=== PATIENT | male | born 1990 | race Caucasian/White ===

== ENCOUNTER 2024-04-30 05:52 | Emergency (ER) | payer MEDICAID, SELFPAY ==
[2024-04-30 05:53] VITALS: BMI 26.6
[2024-04-30 06:00] VITALS: BP 145/91; PULSE 90; RESP 20; TEMP 36.4; O2SAT 100
--- NOTE | 2024-04-30 06:04 | EKG_ITS ---
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
--- NOTE | 2024-04-30 06:31 | XR_ITS ---
Examination: PA lateral chest 2 views Technique: Upright PA lateral chest 2 views Exam date and time: April 30, 2024 0638 hrs. Comparison October 07, 2022 Indications: Chest pain today. Findings: Normal heart size Lungs are clear. The osseous structures are intact Impression: No active disease
--- NOTE | 2024-04-30 06:32 | PD.EDRME ---
Rapid Medical Screening Exam RME Arrival date/time: 04/30/24 0600 This is a 33y old male here with complaints of generalized fatigue, h/a, and chest pain with syncope yesterday. I have greeted and performed a focused initial assessment of this patient. Initial appropriate labs ordered at this time. A comprehensive ED assessment and evaluation of the patient and analysis of all test and completion of medical decision making process will be conducted by additional ED provider. Chief Complaint: General Adult/Misc Complain Time Seen by Provider: 04/30/24 06:09 Vital signs: Vital Signs Temperature 97.6 F 04/30/24 06:00 Pulse Rate 90 04/30/24 06:00 Respiratory Rate 20 04/30/24 06:00 Blood Pressure 145/91 H 04/30/24 06:00 Pulse Oximetry (%) 100 04/30/24 06:00 Oxygen Delivery Method Room Air 04/30/24 06:00
[2024-04-30 07:32] LABS: Basophils # (Auto) 0.1 Thou/mm3 (0.0-0.2); Basophils % (Auto) 1 % (0-2.5); Eosinophils # (Auto) 0.1 Thou/mm3 (0.0-0.5); Eosinophils % (Auto) 2 % (0-10); Hematocrit 42.5 % (41.0-53.0); Hemoglobin 14.1 g/dL (13.5-16.0); Immature Granulocytes % (Auto) 0 % (0-0); Immature Granulocytes Auto 0.03 Thou/mm3 (0.00-0.00); Lymphocytes # (Auto) 1.6 Thou/mm3 (1.0-4.8); Lymphocytes % (Auto) 18 % (10-50); Mean Corpuscular HGB Conc 33.2 g/dl (31.0-37.0); Mean Corpuscular Hemoglobin 27.9 pg (25.0-35.0); Mean Corpuscular Volume 84 fL (80-100); Monocytes # (Auto) 0.5 Thou/mm3 (0.0-0.8); Monocytes % (Auto) 5 % (0-12); Neutrophils # (Auto) 6.8 Thou/mm3 (1.8-7.7); Neutrophils % (Auto) 75 % (37-80); Nucleated Red Blood Cell % 0 /100 WBC (0); Platelet Count 360 Thou/mm3 (140-440); RDW Standard Deviation 42.8 fL (35.1-43.9); Red Blood Count 5.06 Miln/mm3 (4.50-5.90); White Blood Count 9.1 Thou/mm3 (3.8-10.6)
[2024-04-30 07:41] LABS: Prothrombin Time 10.6 Seconds (9.0-12.2)
[2024-04-30 07:49] LABS: B-Type Natriuretic Peptide < 20 pg/mL (0-100)
[2024-04-30 07:50] LABS: Alanine Aminotransferase 24 U/L (10-49); Albumin, Serum 4.7 gm/dL (3.5-5.0); Alkaline Phosphatase 82 U/L (46-116); Anion Gap 4 (7-16); Aspartate Amino Transferase 15 U/L (0-34); BUN/Creatinine Ratio 10 Ratio (12-20); Bilirubin,Total 0.3 mg/dL (0.3-1.2); Blood Urea Nitrogen 11 mg/dL (9-23); Carbon Dioxide 32.6 mMol/L (20.0-31.0); Chloride 103 mMol/L (98-107); Creatinine (Component) 1.1 mg/dL (0.6-1.3); Estimated Creatinine Clearance 82.3 mL/min (>60); Globulin 2.4 gm/dL (2.3-3.5); Glucose 112 mg/dL (74-106); Lipase 35 U/L (12-53); Osmolality,Calculated 279 (275-295); Potassium 4.2 mMol/L (3.4-5.1); Sodium 140 mMol/L (136-145); Total Protein 7.1 gm/dL (5.7-8.2); Troponin I < 0.002 ng/mL (0.0-0.045); eGFR > 60 See Note
[2024-04-30 08:28] VITALS: BP 143/101; PULSE 88; RESP 14; TEMP 36.7; O2SAT 100
[2024-04-30 08:34] VITALS: BP 130/94; PULSE 77; RESP 17; TEMP 36.4; O2SAT 99
--- NOTE | 2024-04-30 09:02 | PD.EDADULT ---
ED General RME/HPI General Chief complaint: General Adult/Misc Complain Stated complaint: PASS OUT Time Seen by Provider: 04/30/24 06:09 Arrival date/time: 04/30/24 05:52 Limitations: no limitations RME / HPI RME / HPI narrative: 04/30/24 0600 This is a 33y old male here with complaints of generalized fatigue, h/a, and chest pain with syncope yesterday. I have greeted and performed a focused initial assessment of this patient. Initial appropriate labs ordered at this time. A comprehensive ED assessment and evaluation of the patient and analysis of all test and completion of medical decision making process will be conducted by additional ED provider. DR. ELSIE GONZALEZ ED EVALUATION: 33-year-old gentleman with no past medical history presents to the Emergency Department with complaint of lightheadedness and a syncopal episode happening around 2:30 in the morning while he was out having a smoke. He states for the last day he has had generalized malaise, chills, and sweats. He denies fevers. He denies sick contacts, but he does admit he is homeless. Prior to his episode of lightheadedness he did have a mouth, headache, with nausea that has since resolved. Currently he is asymptomatic. Related Data Previous Rx's ?Medication ?Instructions ?Recorded ibuprofen 800 mg tablet 800 mg PO TID PRN pain #30 tabs 06/12/23 sulfamethoxazole 800 1 tab PO BID #20 tabs 06/12/23 mg-trimethoprim 160 mg tablet (Bactrim DS) oseltamivir 75 mg capsule (Tamiflu) 75 mg PO Q12H 5 days #10 caps 04/30/24 Allergies Allergy/AdvReac Type Severity Reaction Status Date / Time Penicillins Allergy Severe Hives Verified 11/07/22 22:38 Review of Systems Review of Systems Systems Reviewed: All systems reviewed, normal except as documented Narrative Review of Systems: GEN: No fever, + chills, no weight loss, + generalized malaise, + sweating EYES: No discharge, no visual changes, no pain HEENT: No ear pain, no congestion, no sore throat PULM: No shortness of breath, no cough, no congestion CV: No chest pain, no dyspnea on exertion, no palpitations GI: No nausea, no vomiting, no diarrhea, no pain, no constipation : No frequency, no urgency and no dysuria MUSC/SKEL: No joint pain, no back pain SKIN: No rash PSYCH: No hallucinations, no depression HEME/LYMPH: No easy bleeding or bruising tendencies NEURO: No one-sided weakness, no headache, + lightheadedness, +syncopal episode (see HPI) Past Medical History Social History SMOKING STATUS: Never smoker SUBSTANCE USE: does not use ALCOHOL: Never HOUSING: Homeless ED Exam General Limitations: Present no limitations General appearance: Present alert and in no apparent distress Head Head exam: Present atraumatic Eye Eye exam: Present normal appearance, PERRL and EOMI ENT ENT exam: Present normal exam, normal oropharynx and mucous membranes moist Neck Neck exam: Present normal inspection, full ROM and trachea midline Chest Chest inspection: Present normal inspection and symmetric chest wall rise Respiratory Respiratory exam: Present normal lung sounds bilaterally Cardiovascular Cardiovascular exam: Present regular rate, normal rhythm and normal heart sounds Abdominal Exam Abdominal exam: Present soft and normal bowel sounds Extremities Exam Extremities exam: Present normal inspection and full ROM Back Exam Back exam: Present normal inspection and full ROM Neurological Exam Neurological exam: Present alert, oriented X3 and CN II-XII intact Psychiatric Psychiatric exam: Present normal affect and normal mood Skin Skin exam: Present warm, dry, intact and normal color Course Quality Measures none Orders Category Date Time Status Bedside COVID-19 Antigen Test NOW Care 04/30/24 06:31 Completed Bedside Influenza A&B Antigen Test NOW Care 04/30/24 06:31 Completed EKG (ED ONLY) *Do not use* NOW Care 04/30/24 06:05 Completed EKG (ED Only) Stat Exams 04/30/24 06:04 Draft XR chest 2V Stat Exams 04/30/24 06:31 Completed B-Type Natriuretic Peptide Stat Lab 04/30/24 07:09 Completed CBC Stat Lab 04/30/24 07:09 Completed Comprehensive Metabolic Panel Stat Lab 04/30/24 07:09 Completed Lipase Stat Lab 04/30/24 07:09 Completed Prothrombin Time with INR Stat Lab 04/30/24 07:09 Completed Troponin I Stat Lab 04/30/24 07:09 Completed Reevaluation(s) Reevaluation #1: Given a symptomatology of suspicion for flu, like illness, the weak negative predictive value of rapid flu testing, he?ll be treated empirically with Tamiflu for the next five days it will be stable for follow up with his primary care doctor. Patient remains clinically stable throughout the emergency department visit. Re-assessment at the time of disposition demonstrates that the patient is in no acute distress. We reviewed all the results, analysis, and treatment plans. Patient is amenable to discharge. Strict return precautions were outlined. Patient was discharged in stable condition. Time: 09:55 Vital Signs Vital signs: Vital Signs Temperature 97.6 F 04/30/24 06:00 Pulse Rate 90 04/30/24 06:00 Respiratory Rate 20 04/30/24 06:00 Blood Pressure 145/91 H 04/30/24 06:00 Pulse Oximetry (%) 100 04/30/24 06:00 Oxygen Delivery Method Room Air 04/30/24 06:00 [facility] Patient data External records reviewed:: [facility] previous records (Reviewed last ED visit dated 06/12/23, discharged with the following: Cellulitis due to MRSA.) Clinical information provided by:: patient Social determinants that could affect healthcare access:: housing (homeless) Patient has the following chronic illnesses:: Denies any PMHx, surgeries, daily medications, or known allergies. How is presenting disease/condition affected by chronic disease/condition?: no chronic disease Evaluation data The following diagnostics were reviewed and interpreted by me:: lab results, radiology exam(s) and EKG tracing(s) Lab and/or radiology exams considered but not ordered:: none Interpretation Summary: EKG: Dated 04/30/2024 at 0618 hours. Interpreted by me: sinus rhythm, rate 85, normal intervals, normal axis, no acute ST-T wave changes. No previous EKG for comparison. Chest x-ray: my interpretation shows no acute cardiopulmonary findings, no cardiomegaly, no bony abnormalities. Full report below. RADIOLOGY Procedure(s): XR chest 2V Accession Number(s): [id number] cc: Tae Trevino MD; Shelby Gautam~ Examination: PA lateral chest 2 views Technique: Upright PA lateral chest 2 views Exam date and time: April 30, 2024 0638 hrs. Comparison October 07, 2022 Indications: Chest pain today. Findings: Normal heart size Lungs are clear. The osseous structures are intact Impression: No active disease Dictated By: Tae Trevino MD Medications Medications considered but not ordered:: none Medication administrations:: none Consultations Consultation(s) initiated? (list below): No Diagnosis Differential Diagnosis ED Complaint MDM: Influenza-like symptoms, pneumonia, influenza, COVID Most likely diagnosis given after review of the tests above:: Influenza-like symptoms Admission Indicated Admission indicated?: not indicated Explain why admission is indicated or not indicated:: Patient has no emergent abnormalities on his studies and can be managed on an outpatient basis. Admission Request Was there a request for admission?: No Disposition Plan Disposition Plan: Discharge Discharge Attestation Discharge Attestation: The patient and all family members were given an opportunity to ask questions and understood the discharge instructions. Discharge instructions specifically effects, indications for sooner follow up or return to the emergency department, and the expected course of current diagnosis. Patient condition: Stable Medical Decision Making MDM Narrative MDM Narrative: Kayli Ingram am scribing for and in the presence of Dr. Reynolds. Differential Diagnosis Differential Diagnosis: Influenza-like symptoms, pneumonia, influenza, COVID Lab Data 04/30/24 07:09 04/30/24 07:09 Labs: Lab Results 04/30/24 Range/Units 07:09 WBC 9.1 (3.8-10.6) Thou/mm3 RBC 5.06 (4.50-5.90) Miln/mm3 Hgb 14.1 (13.5-16.0) g/dL Hct 42.5 (41.0-53.0) % MCV 84 (80-100) fL MCH 27.9 (25.0-35.0) pg MCHC 33.2 (31.0-37.0) g/dl RDW Std Deviation 42.8 (35.1-43.9) fL Plt Count 360 (140-440) Thou/mm3 Neut % (Auto) 75 (37-80) % Lymph % (Auto) 18 (10-50) % Hardy % (Auto) 5 (0-12) % Eos % (Auto) 2 (0-10) % Baso % (Auto) 1 (0-2.5) % Neut # (Auto) 6.8 (1.8-7.7) Thou/mm3 Lymph # (Auto) 1.6 (1.0-4.8) Thou/mm3 Hardy # (Auto) 0.5 (0.0-0.8) Thou/mm3 Eos # (Auto) 0.1 (0.0-0.5) Thou/mm3 Baso # (Auto) 0.1 (0.0-0.2) Thou/mm3 Immature Gran # (Auto) 0.03 H (0.00-0.00) Thou/mm3 Absolute Nucleated RBC 0.00 (0.00-0.00) Thou/mm3 Immature Gran % 0 (0-0) % Nucleated RBC % 0 (0) /100 WBC PT 10.6 (9.0-12.2) Seconds INR 1.0 (0.9-1.3) Sodium 140 (136-145) mMol/L Potassium 4.2 (3.4-5.1) mMol/L Chloride 103 (98-107) mMol/L Carbon Dioxide 32.6 H (20.0-31.0) mMol/L Anion Gap 4 L (7-16) BUN 11 (9-23) mg/dL Creatinine 1.1 (0.6-1.3) mg/dL Estim Creat Clear Calc 82.3 (>60) mL/min eGFR > 60 (60 - ) See Note BUN/Creatinine Ratio 10 L (12-20) Ratio Glucose 112 H (74-106) mg/dL Calculated Osmolality 279 (275-295) Calcium 10.0 (8.3-10.6) mg/dL Corrected Calcium 10.0 (8.5-10.1) mg/dL Total Bilirubin 0.3 (0.3-1.2) mg/dL AST 15 (0-34) U/L ALT 24 (10-49) U/L Alkaline Phosphatase 82 (46-116) U/L Troponin I < 0.002 (0.0-0.045) ng/mL B-Natriuretic Peptide < 20 (0-100) pg/mL Total Protein 7.1 (5.7-8.2) gm/dL Albumin 4.7 (3.5-5.0) gm/dL Globulin 2.4 (2.3-3.5) gm/dL Albumin/Globulin Ratio 2.0 (1.2-2.2) Lipase 35 (12-53) U/L Discharge Plan Plan Patient Disposition: HOME (Self Care) Prescriptions/Referrals Prescriptions/Med Rec: New oseltamivir [Tamiflu] 75 mg capsule 75 mg PO Q12H 5 Days Qty: 10 0RF No Action ibuprofen 800 mg tablet 800 mg PO TID PRN (Reason: pain) Qty: 30 0RF sulfamethoxazole-trimethoprim [Bactrim DS] 800-160 mg tablet 1 tab PO BID Qty: 20 0RF Referrals: No Primary/Family,Physician [Primary Care Provider] - In 1 week Problem List Clinical Impression: Influenza-like symptoms Patient/Caregiver Discharge Instructions Education Materials: ED Viral Syndrome (Adult) Additional Instructions: Follow-up with your primary care doctor in 7 to 10 days if symptoms or not improving. You can return to the emergency department sooner symptoms worsen or if you notice any new, concerning issues. Print Language: Chadian Stand Alone Forms: Prabha Award Info., Patient Portal Info Letter
[2024-04-30 10:06] VITALS: BP 134/92; PULSE 93; RESP 20; O2SAT 97
== END 2024-04-30 10:08 | disposition home or self-care (01) ==
PROVIDERS: Nurse Practitioner Primary Care; Emergency Provider Emergency Medicine
DX: R53.83 Other fatigue (principal); R51.9 Headache, unspecified; R07.9 Chest pain, unspecified; Z59.00 Homelessness unspecified
CPT/HCPCS: 36415; 71046; 80053; 80307; 83690; 83880; 84484; 85025; 85610; 87400; 87811; 93005; 99283

== ENCOUNTER 2024-05-20 18:28 | Emergency (ER) | payer MEDICAID, SELFPAY ==
[2024-05-20 18:29] VITALS: BP 119/80; PULSE 103; RESP 18; TEMP 36.8; O2SAT 97
--- NOTE | 2024-05-20 18:53 | PD.EDADULT ---
ED General RME/HPI General Stated complaint: MEDICAL CLEARANCE Time Seen by Provider: 05/20/24 18:40 Arrival date/time: 05/20/24 18:28 RME / HPI RME / HPI narrative: 33-year-old male patient with significant history of fentanyl abuse, methamphetamine abuse, marijuana abuse, was sent to us by law enforcement for medical clearance. According to the patient has been having intermittent palpitation and intermittent rectal bleed. She was seen here about 2 weeks ago, and everything was normal. Currently patient is denying any complaints no palpitation no rectal bleed. Last use of meth was yesterday. Related Data Previous Rx's ?Medication ?Instructions ?Recorded ibuprofen 800 mg tablet 800 mg PO TID PRN pain #30 tabs 06/12/23 sulfamethoxazole 800 1 tab PO BID #20 tabs 06/12/23 mg-trimethoprim 160 mg tablet (Bactrim DS) Allergies Allergy/AdvReac Type Severity Reaction Status Date / Time Penicillins Allergy Severe Hives Verified 11/07/22 22:38 Review of Systems Review of Systems Narrative Review of Systems: Review of system reviewed and within normal limits except mentioned in HPI ED Exam Narrative Physical exam: VITAL SIGNS: Reviewed. GENERAL APPEARANCE: Alert and interactive, follows commands, no acute distress, HEAD AND FACE: Non-traumatic. ENT: PERRL, pink conjunctivitis, eyelid no trauma, Mucous membrane moist. NECK: Supple, nontender, no nuchal rigidity. CHEST: No tenderness, no crepitus, no paradoxical movement, no retractions. LUNGS: Clear, well ventilated, symmetric, no rales, no wheezing, no ronchi, no stridor, good breath sounds bilaterally. HEART: Regular rate, regular rhythm, no murmur, no gallops. ABDOMEN: Soft, positive bowel sounds, nondistended, no guarding, nontender, no rebound, no masses, RECTAL: Deferred. GENITAL: Deferred. NEUROLOGICAL: Gross motor function intact sensory function intact, Appropriate for age. MUSCULOSKELETAL: low back nontender, full range of motion. EXTREMITIES: Nontender, full range of motion. SKIN: Color pink, dry, no rash, no lacerations, no abrasions, no contusions. LYMPHATICS: Deferred. Course Quality Measures none Vital Signs Vital signs: Vital Signs Temperature 98.3 F 05/20/24 18:29 Pulse Rate 103 H 05/20/24 18:29 Respiratory Rate 18 05/20/24 18:29 Blood Pressure 119/80 05/20/24 18:29 Pulse Oximetry (%) 97 05/20/24 18:29 Oxygen Delivery Method Room Air 05/20/24 18:29 [facility] Patient data External records reviewed:: None Clinical information provided by:: patient Social determinants that could affect healthcare access:: substance use Patient has the following chronic illnesses:: None How is presenting disease/condition affected by chronic disease/condition?: exacerbated by Evaluation data The following diagnostics were reviewed and interpreted by me:: other (specify) (None) Lab and/or radiology exams considered but not ordered:: None Interpretation Summary: None Medications Medications considered but not ordered:: None Medication administrations:: None Consultations Consultation(s) initiated? (list below): No Diagnosis Differential Diagnosis ED Complaint MDM: Palpitation, rectal bleed, methamphetamine abuse Fentanyl abuse marijuana a Most likely diagnosis given after review of the tests above:: Medical clearance for incarceration Admission Indicated Admission indicated?: not indicated Explain why admission is indicated or not indicated:: Stable for discharge to retirement Admission Request Was there a request for admission?: No Disposition Plan Disposition Plan: Discharge Discharge Attestation Discharge Attestation: Patient condition: Stable Medical Decision Making MDM Narrative MDM Narrative: 33-year-old male patient with significant history of fentanyl abuse, methamphetamine abuse, marijuana abuse, was sent to us by law enforcement for medical clearance. According to the patient has been having intermittent palpitation and intermittent rectal bleed. She was seen here about 2 weeks ago, and everything was normal. Currently patient is denying any complaints no palpitation no rectal bleed. Last use of meth was yesterday. Imaging or workup not needed at this time. I reviewed patient's workup that was done less than 2 weeks ago including EKG, and cardiac workup, all came back normal. Patient was noted to be positive for fentanyl meth and marijuana patient is medically cleared for incarceration patient's vital signs are within normal limits. Differential Diagnosis Differential Diagnosis: Palpitation, rectal bleed, methamphetamine abuse Fentanyl abuse marijuana a Discharge Plan Plan Patient Disposition: [facility]ci/Court/Law Disposition Comment: Stable Prescriptions/Referrals Prescriptions/Med Rec: No Action ibuprofen 800 mg tablet 800 mg PO TID PRN (Reason: pain) Qty: 30 0RF sulfamethoxazole-trimethoprim [Bactrim DS] 800-160 mg tablet 1 tab PO BID Qty: 20 0RF Problem List Clinical Impression: Medical clearance for incarceration, Intermittent palpitations, History of rectal bleeding Patient/Caregiver Discharge Instructions Discharge Activity: activity as tolerated Education Materials: ED Palpitations Additional Instructions: Thank you for the opportunity for serving you today. You are stable for discharged . You are advised to: Follow-up with your PCP in 1 to 2 days once you get out of retirement and as per referral to GI specialist for outpatient colonoscopy and business systems architect regarding your palpitation but I believe your palpitations and it is related to your meth abuse. Return to ED for worsening of symptoms Increase oral fluids Print Language: Croatian PA/WEATHER STRIPPER Supervising Physician PA/WEATHER STRIPPER Supervising Physician: MD Celestine
[2024-05-20 18:55] VITALS: BMI 26.6
== END 2024-05-20 19:17 ==
PROVIDERS: Emergency Provider Emergency Medicine; PCP Family Medicine
DX: Z02.89 Encounter for other administrative examinations (principal); R00.2 Palpitations; K62.5 Hemorrhage of anus and rectum
CPT/HCPCS: 99281

== ENCOUNTER 2024-10-26 00:01 | Emergency (ER) | payer MEDICAID, SELFPAY ==
[2024-10-26 00:03] VITALS: PULSE 71; RESP 16; O2SAT 97; BMI 31.1
[2024-10-26 00:54] VITALS: BP 130/65; PULSE 66; RESP 17; TEMP 36.3; O2SAT 100
--- NOTE | 2024-10-26 01:36 | PD.EDNV ---
Nausea/Vomit./Diarrhea-RME/HPI General Chief complaint: Nausea/Vomiting/Diarrhea Stated complaint: NAUSEA FOR TWO HOURS Time Seen by Provider: 10/26/24 01:53 Arrival date/time: 10/26/24 00:01 RME / HPI RME / HPI Narrative: This section includes all my notes and documentations, including HPI, PE, and ED course. Kobe Blair MD HPI: 34yo male with a history of bipolar disorder, HTN, asthma presents to the ED for complaints of headache, dizziness, nausea, vomiting for the last few hours. Describes his dizziness as the room spinning. No falls or injuries. No diarrhea, chest pain, abdominal pain, shortness of breath, cough or any other associated symptoms. No other complaints reported. ROS: All negative except as documented in HPI. Physical Exam: General:? Alert and oriented.? No acute distress.?? Eyes:? Conjunctivae and lids clear.? EOMI.? PERRL. ENT:? No nasal congestion.? Pharynx normal.? Tympanic membrane normal bilaterally.??? Neck:? Supple.? No carotid bruit.? No JVD.?? Heart:? RRR.? Lungs:? No respiratory distress.? Good air movement.? No rhonchi, wheezing, rales.?? Abdomen:? Soft and nontender.? Normal bowel sounds.? No distension.? No rebound or guarding.?? Skin:? Warm and dry.?? Neuro:? Alert and oriented X 3.? Cranial Nerves II-XII grossly intact.? No peripheral motor deficits. I ordered meclizine and scopolamine patch and Zofran and head CT. I was told the patient eloped. Kobe Blair MD Related Data Previous Rx's ?Medication ?Instructions ?Recorded ibuprofen 800 mg tablet 800 mg PO TID PRN pain #30 tabs 06/12/23 sulfamethoxazole 800 1 tab PO BID #20 tabs 06/12/23 mg-trimethoprim 160 mg tablet (Bactrim DS) Allergies Allergy/AdvReac Type Severity Reaction Status Date / Time Penicillins Allergy Severe Hives Verified 10/26/24 00:02 Review of Systems Review of Systems Systems Reviewed: All systems reviewed, normal except as documented Past Medical History Past Medical History NEUROLOGIC: Positive Neurological Disorders, Seizures, Cerebral Palsy and Migraine CARDIAC: Positive Edema and Hypertension; Negative Cardiac Disorders, Hypercholesterolemia or Congestive Heart Failure RESPIRATORY: Positive Asthma; Negative Chronic Obstructive Pulmonary Disease (COPD) GASTROINTESTINAL: Negative Gastrointestinal Disorders GENITOURINARY: Negative Genitourinary Disorders or Renal Disease MUSCULOSKELETAL: Negative Musculoskeletal Disorders ENDOCRINE: Negative Endocrine Disorders, Diabetes Mellitus Type 1 or Diabetes Mellitus Type 2 HEMATOLOGIC: Negative Blood Disorders or Sickle Cell Disease PSYCHO/SOCIAL: Positive Psychiatric Problems, Recreational Drug Use (smokes marijuana (last smoked yesterday) 10 mg), Bipolar Disorder, Depression and Anxiety OTHER HISTORY: Negative Cancer Social History SMOKING STATUS: Former smoker SUBSTANCE USE: does not use ED Exam Narrative Physical exam: As noted in HPI. Course Quality Measures none Orders Category Date Time Status CT head/brain wo con Stat Exams 10/26/24 01:38 Ordered Meclizine HCl [Antivert] Med 10/26/24 01:37 Discontinued 25 mg PO X1 ONE Ondansetron Odt [Zofran Odt] Med 10/26/24 01:37 Discontinued 4 mg PO X1 ONE Scopolamine [Transderm-Scop Patch] Med 10/26/24 01:37 Discontinued 1 mg TOP X1 ONE Vital Signs Vital signs: Vital Signs Temperature 97.4 F 10/26/24 00:54 Pulse Rate 66 10/26/24 00:54 Respiratory Rate 17 10/26/24 00:54 Blood Pressure 130/65 10/26/24 00:54 Pulse Oximetry (%) 100 10/26/24 00:54 Oxygen Delivery Method Room Air 10/26/24 00:54 Nausea/Vomiting/Diarrhea MDM Narrative MDM Narrative:: 34yo male with a history of bipolar disorder, HTN, asthma presents to the ED for complaints of headache, dizziness, nausea, vomiting, and subjective fever for the last few hours. Describes his dizziness as the room is spinning. No falls or injuries. No diarrhea, chest pain, abdominal pain, shortness of breath, cough or any other associated symptoms. No other complaints reported. Patient data External records reviewed:: [facility] previous records (Per chart review, patient was seen here on 05/20/24 for history of rectal bleeding.) Clinical information provided by:: patient Social determinants that could affect healthcare access:: mental health Patient has the following chronic illnesses:: bipolar disorder, HTN, asthma How is presenting disease/condition affected by chronic disease/condition?: uneffected by Evaluation data The following diagnostics were reviewed and interpreted by me:: other (specify) (none) Lab and/or radiology exams considered but not ordered:: none Interpretation Summary: none Medications / Prescriptions Medications / Prescriptions considered but not ordered:: none Medication administrations:: Medication Administration History Discontinued Medications Meclizine HCl (Meclizine Hcl 25 Mg Tablet) 25 mg PO X1 ONE Stop: 10/26/24 01:38 Last Admin: 10/26/24 02:15 Dose: Not Given Documented By: EE Non-Admin Reason: Patient Refused Ondansetron HCl (Ondansetron Odt 4 Mg Tabrap) 4 mg PO X1 ONE; Protocol Stop: 10/26/24 01:38 Last Admin: 10/26/24 02:15 Dose: Not Given Documented By: EE Non-Admin Reason: Patient Refused Scopolamine (Scopolamine 1 Mg Tdsy) 1 mg TOP X1 ONE Stop: 10/26/24 01:38 Last Admin: 10/26/24 02:15 Dose: Not Given Documented By: EE Non-Admin Reason: Patient Refused none Consultations Consultation(s) initiated? (list below): No Diagnosis Nausea Differential Diagnosis: other (CVA, TIA, brain tumor, vertigo, psychogenic, migraine headache,) Most likely diagnosis given after review of the tests above:: Patient eloped prior to diagnostic tests. Admission Indicated Admission indicated?: not indicated Explain why admission is indicated or not indicated:: Patient eloped. Admission Request Was there a request for admission?: No Disposition Plan Disposition Plan: other (specify) (Patient eloped.) Discharge Plan Plan Patient Disposition: Elopement Prescriptions/Referrals Prescriptions/Med Rec: No Action ibuprofen 800 mg tablet 800 mg PO TID PRN (Reason: pain) Qty: 30 0RF sulfamethoxazole-trimethoprim [Bactrim DS] 800-160 mg tablet 1 tab PO BID Qty: 20 0RF Problem List Clinical Impression: Dizziness Patient/Caregiver Discharge Instructions Print Language: Tunisian
--- NOTE | 2024-10-26 02:15 | PC.NURSE ---
rn called pt to triage to admin medication. per pt he stated he feels better and did not want the medications. pt stated he will be leaving and will return if need. pt seen walking out of the er lobby and not returning.
== END 2024-10-26 02:16 | disposition left against medical advice (07) ==
LOC: SERX 02:50
PROVIDERS: Emergency Provider Emergency Medicine
DX: R42 Dizziness and giddiness (principal); F31.9 Bipolar disorder, unspecified; I10 Essential (primary) hypertension; J45.909 Unspecified asthma, uncomplicated; Z53.29 Procedure and treatment not carried out because of patient's decision for other reasons
CPT/HCPCS: 99281

== ENCOUNTER 2024-11-05 00:23 | Emergency (ER) | payer MEDICAID, SELFPAY ==
[2024-11-05 00:24] VITALS: BMI 28.3
[2024-11-05 00:39] VITALS: BP 138/85; PULSE 87; RESP 18; TEMP 36.6; O2SAT 99
--- NOTE | 2024-11-05 00:44 | XR_ITS ---
Examination: CT right foot, without contrast. 2-D sagittal reconstructions. 2-D coronal reconstructions. 3-D reconstructions. Date and time of exam:November 05, 2024, 0139 hours INDICATIONS: Injury to the foot today with heel pain CTDI: vol (mGy):8 DLP: (mGycm):723 Technique: Multiple 1.25 mm axial sections of the right foot have been obtained. 2-D sagittal and coronal reconstructions have been obtained. 3-D reconstructions have been obtained. Low dose protocols were performed. One or more of the following dose reduction techniques were used; automated exposure control, adjustment of the mA and/or KV according to patient size, use of iterative reconstruction technique. Findings: Distal tibia and distal fibula is intact Talus, calcaneus, cuboid, navicular and cuneiforms intact No Lisfranc tarsometatarsal dislocations Digits appear intact No opaque foreign bodies. IMPRESSION: No acute fracture depicted. If pain persists, recommend plain film right foot follow-up in one to 2 days
--- NOTE | 2024-11-05 01:01 | EDNOTE_ITS ---
Lower Extremity Injury RME/HPI General Chief Complaint: Ankle/Foot Injury Stated Complaint: BILATERAL HEAL PAIN Time Seen by Provider: 11/05/24 00:43 Arrival date/time: 11/05/24 00:23 34M with history of homelessness and drug use presents to ED with bilateral heel pain (R>L), after he jumped from somewhere high and landed on them. Patient is only concerned about R heel. Limitations: no limitations Related Data Previous Rx's ?Medication ?Instructions ?Recorded ibuprofen 800 mg tablet 800 mg PO TID PRN pain #30 t abs 06/12/23 sulfamethoxazole 800 1 tab PO BID #20 tabs mg-trimethoprim 160 mg tablet (Bactrim DS) Allergies Allergy/AdvReac Type Severity Reaction Status Date / Time Penicillins Allergy Severe Hives Verified 10/26/24 00:02 Review of Systems Review of Systems Systems Reviewed: All systems reviewed, normal except as documented Constitutional Constitutional: Reports system reviewed and no additional complaints, except as documented, Denies fever(s) and Denies headache(s) ENT Ears, Nose, Mouth, and Throat: Denies disequilibrium and Denies headache(s) Cardiovascular Cardiovascular: Reports system reviewed and no additional complaints, except as documented, Denies chest pain and Denies dyspnea Respiratory Respiratory: Reports system reviewed and no additional complaints, except as documented, Denies cough and Denies dyspnea Gastrointestinal Gastrointestinal: Reports system reviewed and no additional complaints, except as documented, Denies abdominal pain, Denies nausea and Denies vomiting Musculoskeletal Musculoskeletal: Reports as per HPI and Reports arthralgias Neurologic Neurologic: Reports system reviewed and no additional complaints, except as documented, Denies confusion, Denies disequilibrium and Denies headache(s) Psychiatric Psychiatric: Denies confusion Past Medical History Past Medical History NEUROLOGIC: Positive Neurological Disorders, Seizures, Cerebral Palsy and Migraine CARDIAC: Positive Edema and Hypertension; Negative Cardiac Disorders, Hypercholesterolemia or Congestive Heart Failure RESPIRATORY: Positive Asthma; Negative Chronic Obstructive Pulmonary Disease (COPD) GASTROINTESTINAL: Negative Gastrointestinal Disorders GENITOURINARY: Negative Genitourinary Disorders or Renal Disease MUSCULOSKELETAL: Negative Musculoskeletal Disorders ENDOCRINE: Negative Endocrine Disorders, Diabetes Mellitus Type 1 or Diabetes Mellitus Type 2 HEMATOLOGIC: Negative Blood Disorders or Sickle Cell Disease PSYCHO/SOCIAL: Positive Psychiatric Problems, Recreational Drug Use (smokes marijuana (last smoked yesterday) 10 mg), Bipolar Disorder, Depression and Anxiety OTHER HISTORY: Negative Cancer Social History SMOKING STATUS: Current every day smoker SUBSTANCE USE: does not use ED Exam General Limitations: Present no limitations General appearance: Present alert and in no apparent distress Head Head exam: Present atraumatic Eye Eye exam: Present normal appearance, PERRL and EOMI ENT ENT exam: Present normal exam, normal oropharynx and mucous membranes moist Neck Neck exam: Present normal inspection, full ROM and trachea midline Chest Chest inspection: Present normal inspection and symmetric chest wall rise Respiratory Respiratory exam: Present normal lung sounds bilaterally Cardiovascular Cardiovascular exam: Present regular rate, normal rhythm and normal heart sounds Abdominal Exam Abdominal exam: Present soft and normal bowel sounds Extremities Exam Extremities exam: Present full ROM Expanded Lower Extremity Exam Foot/toe exam: Present full ROM and tenderness (R heel) Back Exam Back exam: Present normal inspection and full ROM Neurological Exam Neurological exam: Present alert, oriented X3 and CN II-XII intact Psychiatric Psychiatric exam: Present normal affect and normal mood Skin Skin exam: Present warm, dry, intact and normal color Course Quality Measures none Orders Category Date Time Status CT foot RT wo con Stat Exams 11/05/24 00:44 Taken Vital Signs Vital signs: Vital Signs Temperature 97.9 F 11/05/24 00:39 Pulse Rate 87 11/05/24 00:39 Respiratory Rate 18 11/05/24 00:39 Blood Pressure 138/85 H 11/05/24 00:39 Pulse Oximetry (%) 99 11/05/24 00:39 Oxygen Delivery Method Room Air 11/05/24 00:39 O2 at 99% on RA and WNLs Extremity Injury, Lower MDM Narrative MDM Narrative:: 34M with history of homelessness and drug use presents to ED with bilateral heel pain (R>L), after he jumped from somewhere high and landed on them. Patient is only concerned about R heel. Physical exam reveals R heel tenderness. Gait favoring R foot. Patient is afebrile, calm, and alert. CT unremarkable. Patient data External records reviewed:: [facility] previous records Clinical information provided by:: patient Social determinants that could affect healthcare access:: housing Patient has the following chronic illnesses:: homelessness and drug use How is presenting disease/condition affected by chronic disease/condition?: exacerbated by Evaluation data The following diagnostics were reviewed and interpreted by me:: radiology exam(s) Lab and/or radiology exams considered but not ordered:: ordered Interpretation Summary: above Medications / Prescriptions Medications or Prescriptions considered but not ordered:: not ordered Medication administrations:: n/a Consultations Consultation(s) initiated? (list below): No Diagnosis Extremity Injury, Lower Differential Diagnosis: ankle sprain and strain, acute internal derangement of knee, puncture wound of foot, fracture of toe and ankle fracture Most likely diagnosis given after review of the tests above:: heel pain Admission Indicated Admission indicated?: not indicated Admission Request Was there a request for admission?: No Disposition Plan Disposition Plan: Discharge Discharge Attestation Discharge Attestation: The patient and all family members were given an opportunity to ask questions and understood the discharge instructions. Discharge instructions specifically effects, indications for sooner follow up or return to the emergency department, and the expected course of current diagnosis. Patient condition: Stable Discharge Plan Plan Patient Disposition: HOME (Self Care) Discharge Disposition comment: Stable Prescriptions/Referrals Prescriptions/Med Rec: No Action ibuprofen 800 mg tablet 800 mg PO TID PRN (Reason: pain) Qty: 30 0RF sulfamethoxazole-trimethoprim [Bactrim DS] 800-160 mg tablet 1 tab PO BID Qty: 20 0RF Referrals: No Primary/Family,Physician [Primary Care Provider] - In 1 week Problem List Clinical Impression: Heel pain Patient/Caregiver Discharge Instructions Education Materials: ED Myalgias Additional Instructions: Please follow-up with PCP within 24-48 hours and return immediately if symptoms worsen. If problem persists, recommend outpatient PT and/or MRI follow-up. In the meantime, rest, use ice/heat, and/or compression. Recommend keep socks clean and dry. Print Language: Sudanese Stand Alone Forms: Patient Portal Info Letter AIDEE/ONEIDA Supervising Physician GILDA Supervising Physician: Dr. Blair
--- NOTE | 2024-11-05 03:29 | PRELIM_ITS ---
CT scan of the right foot without intravenous contrast (axial sections with sagittal and coronal reformats) November 05, 2024 0139 hours Clinical History: Possible heel fracture. Comparison: None. Findings: There is no fracture or dislocation. The alignment is maintained. The ankle mortise is intact. The retrocalcaneal region is unremarkable. The other visualized bones are unremarkable. The sinus tarsi is within normal limits. Soft tissues edema. Impression: No acute fractures. Report Electronically Signed By: Nathan Bartlett 11/05/2024 3:29:32 AM [EST]
== END 2024-11-05 03:53 | disposition home or self-care (01) ==
PROVIDERS: Emergency Provider Emergency Medicine
DX: S99.921A Unspecified injury of right foot, initial encounter (principal); S99.922A Unspecified injury of left foot, initial encounter; W17.89XA Other fall from one level to another, initial encounter
CPT/HCPCS: 73700; 99284

== ENCOUNTER 2024-11-17 20:14 | Emergency (ER) | payer MEDICAID, SELFPAY ==
[2024-11-17 20:24] VITALS: PULSE 70; O2SAT 98
[2024-11-17 20:58] VITALS: BP 125/70; PULSE 81; RESP 20; TEMP 36.7; O2SAT 99; BMI 29.1
--- NOTE | 2024-11-17 21:04 | XR_ITS ---
Examination: CT brain head without contrast. 2-D sagittal coronal reconstructions Date and time of exam:November 17, 2024, 2115 hours Comparison October 14, 2021 INDICATIONS: Onset headache dizziness today CTDI: vol (mGy):53.9 DLP: (mGycm):1127 Technique: Multiple CT axial sections of the brain have been obtained, 5 mm slice thickness. Contrast has not been administered. 2-D sagittal, coronal reconstructions have been obtained Low dose protocols were performed. One or more of the following dose reduction techniques were used; automated exposure control, adjustment of the mA and/or KV according to patient size, use of iterative reconstruction technique. Findings: No significant ventricular enlargement. Intra-axial or extra-axial hemorrhage density is not seen. No mass effect or midline shift Basal cisterns are not remarkable. Fourth ventricle is midline. Cranial vault intact. Impression: Negative for acute hemorrhage, mass effect or midline shift Advise clinical correlation and follow up accordingly
[2024-11-17] MEDS: METOCLOPRAMIDE 5 MG TABLET 10 MG PO (21:24)
[2024-11-17] MEDS: SUMAtriptan INJ 6 MG/0.5 ML VIAL SC (21:25)
[2024-11-17] MEDS: KETOROLAC INJ 60 MG/2 ML VIAL IM (23:22)
--- NOTE | 2024-11-18 00:17 | PD.EDHA ---
ED Headache RME/HPI General Chief Complaint: Headache Stated Complaint: HEADACHE,DIZZINESS Time Seen by Provider: 11/17/24 21:04 Arrival date/time: 11/17/24 20:14 34M with history of migraines, homelessness and drug use presents to ED with with 1 day of QUINTEROS, dizziness, and light sensitivity. Limitations: no limitations Related Data Previous Rx's ?Medication ?Instructions ?Recorded ibuprofen 800 mg tablet 800 mg PO TID PRN pain #30 tabs 06/12/23 sulfamethoxazole 800 1 tab PO BID #20 tabs 06/12/23 mg-trimethoprim 160 mg tablet (Bactrim DS) Allergies Allergy/AdvReac Type Severity Reaction Status Date / Time Penicillins Allergy Severe Hives Verified 11/17/24 20:23 Review of Systems Review of Systems Systems Reviewed: All systems reviewed, normal except as documented Constitutional Constitutional: Reports system reviewed and no additional complaints, except as documented, Reports as per HPI, Denies fever(s) and Reports headache(s) Eyes Eyes: Reports as per HPI and Reports photophobia ENT Ears, Nose, Mouth, and Throat: Reports as per HPI, Denies disequilibrium, Reports headache(s) and Reports vertigo Cardiovascular Cardiovascular: Reports system reviewed and no additional complaints, except as documented, Denies chest pain and Denies dyspnea Respiratory Respiratory: Reports system reviewed and no additional complaints, except as documented, Denies cough and Denies dyspnea Gastrointestinal Gastrointestinal: Reports system reviewed and no additional complaints, except as documented, Denies abdominal pain, Denies nausea and Denies vomiting Neurologic Neurologic: Reports system reviewed and no additional complaints, except as documented, Denies confusion, Denies disequilibrium, Reports headache(s) and Reports vertigo Psychiatric Psychiatric: Denies confusion ED Exam General Limitations: Present no limitations General appearance: Present alert, in no apparent distress and appears intoxicated Head Head exam: Present atraumatic Eye Eye exam: Present normal appearance, PERRL and EOMI ENT ENT exam: Present normal exam, normal oropharynx and mucous membranes moist Neck Neck exam: Present normal inspection, full ROM and trachea midline Chest Chest inspection: Present normal inspection and symmetric chest wall rise Respiratory Respiratory exam: Present normal lung sounds bilaterally Cardiovascular Cardiovascular exam: Present regular rate, normal rhythm and normal heart sounds Abdominal Exam Abdominal exam: Present soft and normal bowel sounds Extremities Exam Extremities exam: Present normal inspection and full ROM Back Exam Back exam: Present normal inspection and full ROM Neurological Exam Neurological exam: Present alert, oriented X3 and CN II-XII intact Psychiatric Psychiatric exam: Present normal affect and normal mood Skin Skin exam: Present warm, dry, intact and normal color Course Quality Measures none Orders Category Date Time Status CT head/brain wo con Stat Exams 11/17/24 21:04 Completed DiphenhydrAMINE [Benadryl] Med 11/17/24 21:04 Discontinued 25 mg PO X1 ONE Ketorolac Inj [Toradol Inj] Med 11/17/24 23:00 Discontinued 60 mg IM X1 ONE Metoclopramide [Reglan] Med 11/17/24 21:04 Discontinued 10 mg PO X1 ONE SUMAtriptan INJ [Imitrex Inj] Med 11/17/24 21:04 Discontinued 6 mg SC X1 ONE Vital Signs Vital signs: Vital Signs Temperature 98.1 F 11/17/24 20:58 Pulse Rate 81 11/17/24 20:58 Respiratory Rate 20 11/17/24 20:58 Blood Pressure 125/70 11/17/24 20:58 Pulse Oximetry (%) 99 11/17/24 20:58 Oxygen Delivery Method Room Air 11/17/24 20:58 O2 at 99% on RA and WNLs Headache MDM Narrative MDM Narrative:: 34M with history of migraines, homelessness and drug use presents to ED with with 1 day of QUINTEROS, dizziness, and light sensitivity. Physical exam reveals normal pupil response and EOM. CN II-XII grossly intact. Pronator test neg. Patient is afebrile, calm, but appears intoxicated. CT unremarkable. Meds relieved symptoms. Patient data External records reviewed:: [facility] previous records Clinical information provided by:: patient Social determinants that could affect healthcare access:: housing Patient has the following chronic illnesses:: drug, migraine, homelessness How is presenting disease/condition affected by chronic disease/condition?: exacerbated by Evaluation data The following diagnostics were reviewed and interpreted by me:: radiology exam(s) Lab and/or radiology exams considered but not ordered:: ordered Interpretation Summary: above Medications / Prescriptions Medications or Prescriptions considered but not ordered:: ordered Medication administrations:: Medication Administration History Discontinued Medications Diphenhydramine HCl (Diphenhydramine 25 Mg Capsule) 25 mg PO X1 ONE Stop: 11/17/24 21:05 Last Admin: 07/16/25 21:24 Dose: 25 mg Documented By: Ketorolac Tromethamine (Ketorolac Inj 60 Mg/2 Ml Vial) 60 mg IM X1 ONE Stop: 11/17/24 23:01 Last Admin: 11/17/24 23:22 Dose: 60 mg Documented By: FF Metoclopramide HCl (Metoclopramide 5 Mg Tablet) 10 mg PO X1 ONE Stop: 11/17/24 21:05 Last Admin: 11/17/24 21:24 Dose: 10 mg Documented By: Sumatriptan Succinate (Sumatriptan Inj 6 Mg/0.5 Ml Vial) 6 mg SC X1 ONE Stop: 11/17/24 21:05 Last Admin: 11/17/24 21:25 Dose: 6 mg Documented By: above Consultations Consultation(s) initiated? (list below): No Diagnosis Differential diagnosis headache: migraine, tension headache, subarachnoid hemorrhage, headache, meningitis, sinusitis and postconcussion syndrome Most likely diagnosis given after review of the tests above:: migraine Admission Indicated Admission indicated?: not indicated Admission Request Was there a request for admission?: No Disposition Plan Disposition Plan: Discharge Discharge Attestation Discharge Attestation: The patient and all family members were given an opportunity to ask questions and understood the discharge instructions. Discharge instructions specifically effects, indications for sooner follow up or return to the emergency department, and the expected course of current diagnosis. Patient condition: Stable Discharge Plan Plan Patient Disposition: HOME (Self Care) Discharge Disposition comment: Stable Prescriptions/Referrals Prescriptions/Med Rec: No Action ibuprofen 800 mg tablet 800 mg PO TID PRN (Reason: pain) Qty: 30 0RF sulfamethoxazole-trimethoprim [Bactrim DS] 800-160 mg tablet 1 tab PO BID Qty: 20 0RF Referrals: No Primary/Family,Physician [Primary Care Provider] - In 1 week Problem List Clinical Impression: Migraine Patient/Caregiver Discharge Instructions Education Materials: ED Headache, Migraine, Classic Additional Instructions: Please follow-up with PCP within 24-48 hours and return immediately if symptoms worsen. Print Language: Italian Stand Alone Forms: Patient Portal Info Letter PA/ONEIDA Supervising Physician AIDEE/ONEIDA Supervising Physician: Dr. Blair
[2024-11-18 00:54] VITALS: RESP 16
== END 2024-11-18 00:54 | disposition home or self-care (01) ==
PROVIDERS: Emergency Provider Emergency Medicine
DX: G43.109 Migraine with aura, not intractable, without status migrainosus (principal)
CPT/HCPCS: 70450; 96372; 99283; J1885; J3030; A9270

== ENCOUNTER 2025-02-08 01:11 | Emergency (ER) | payer OTHER, SELFPAY ==
[2025-02-08 01:14] VITALS: PULSE 88; RESP 18; O2SAT 98; BMI 29.1
[2025-02-08 01:17] VITALS: BP 138/79; PULSE 68; RESP 18; TEMP 36.7; O2SAT 100; BMI 28.3
--- NOTE | 2025-02-08 01:21 | PD.EDADULT ---
ED General RME/HPI General Chief complaint: Allergic Reaction Stated complaint: ALLERGIC REACTION Time Seen by Provider: 02/08/25 01:21 Arrival date/time: 02/08/25 01:11 RME / HPI RME / HPI narrative: 34 y/o male with PMHx of ? seizures (not taking anything right now) and anxiety who comes in for an evaluation after an apparent allergic reaction after taking Zoloft with associated symptoms of dysphagia, shortness of breath, nausea, and headache. Patient reports that he was recently started on Zoloft about a month ago, however has not been taking it as consistently. He says that he was recently changed his dose from 50 mg to 100 mg. He says he took his pill and about 10 minutes after he began to have those symptoms as listed above. He says that he was given Benadryl and then after he was given epinephrine his symptoms had improved drastically. He denies any new clothing, belts or anything that would touch his skin as he says he is from [facility]. Right now he says his symptoms have improved, he still says he has a headache at this time. No other complaints at this time. Related Data Previous Rx's ?Medication ?Instructions ?Recorded ibuprofen 800 mg tablet 800 mg PO TID PRN pain #30 tabs 06/12/23 sulfamethoxazole 800 1 tab PO BID #20 tabs 06/12/23 mg-trimethoprim 160 mg tablet (Bactrim DS) Allergies Allergy/AdvReac Type Severity Reaction Status Date / Time Penicillins Allergy Severe Hives Verified 02/08/25 01:43 sertraline (From Zoloft) Allergy Verified 02/08/25 01:43 Review of Systems Review of Systems Narrative Review of Systems: 12 point ROS reviewed and is otherwise negative unless stated directly in the HPI ED Exam Narrative Physical exam: General: AAOx3, NAD, HEENT: Moist mucous membranes, conjunctiva clear, EOMI, PERRLA, male pattern baldness Tevin scale IV Cardiovascular: S1, S2, radial pulses +2 bilat, RRR Pulmonary: CTAB bilat no cough, no wheezing GI: No tenderness to light or deep palpitation, no guarding, rigidity, rebound tenderness or distension Extremities: No presence of trace or pitting edema in lower extremities bilaterally, dorsalis pedis pulses +2 bilaterally Skin: No maura areas of rash, however some diffuse erythema seen on mid sternum and also part of left shoulder. No track hobson visualized Neuro: AAOx3, no focal motor or sensory deficits in the UE or LE bilat Psych: Good judgement, thought and behavior Course Quality Measures none Orders Category Date Time Status Bedside COVID-19 Antigen Test NOW Care 02/08/25 01:38 Active Bedside Influenza A&B Antigen Test NOW Care 02/08/25 01:38 Active EKG (ED ONLY) *Do not use* NOW Care 02/08/25 01:29 Completed Insert IV NOW Care 02/08/25 01:29 Active EKG (ED Only) Stat Exams 02/08/25 01:29 Draft XR chest 1V portable Stat Exams 02/08/25 01:36 Taken CBC Stat Lab 02/08/25 01:34 Completed CMP [Comprehensive Metabolic Panel] Stat Lab 02/08/25 01:34 Completed Drug Screen,Urine Stat Lab 02/08/25 01:29 Ordered Lactic Acid [Lactate (Lactic Acid)] Stat Lab 02/08/25 01:34 Results Lipase Stat Lab 02/08/25 01:34 Completed Mag [Magnesium] Stat Lab 02/08/25 01:34 Completed Troponin I Stat Lab 02/08/25 01:34 Completed Urinalysis, C/S if Indicated Stat Lab 02/08/25 01:28 Ordered Acetaminophen Tab [Tylenol Tab] Med 02/08/25 01:29 Discontinued 650 mg PO X1 ONE Albuterol/Ipratr Rt Jerilyn [Duoneb Rt Jerilyn] Med 02/08/25 01:39 Discontinued 3 ml INH X1 ONE BENZOCAINE(hurricane) SPRAY [Hurricane 20% Purling] Med 02/08/25 01:28 Discontinued See Dose Instructions TOP X1 ONE Famotidine Inj [Pepcid Inj] Med 02/08/25 01:28 Discontinued 20 mg IVP X1 ONE Ketorolac Inj [Toradol Inj] Med 02/08/25 01:39 Discontinued 30 mg IVP X1 ONE MethylPREDNISolone.* [SoluMEDROL Inj] Med 02/08/25 01:28 Discontinued 125 mg IVP X1 ONE Ondansetron Inj [Zofran Inj] Med 02/08/25 01:29 Discontinued 4 mg IVP X1 ONE Sodium Chloride 0.9% 1000 ml [Ns] 1,000 ml Med 02/08/25 01:38 Discontinued IV 999 mls/hr Vital Signs Vital signs: Vital Signs Temperature 98.0 F 02/08/25 01:17 Pulse Rate 68 02/08/25 01:17 Respiratory Rate 18 02/08/25 01:17 Blood Pressure 138/79 H 02/08/25 01:17 Pulse Oximetry (%) 100 02/08/25 01:17 Oxygen Delivery Method Room Air 02/08/25 01:17 Discharge Plan Plan Patient Disposition: HOME (Self Care) Prescriptions/Referrals Prescriptions/Med Rec: No Action ibuprofen 800 mg tablet 800 mg PO TID PRN (Reason: pain) Qty: 30 0RF sulfamethoxazole-trimethoprim [Bactrim DS] 800-160 mg tablet 1 tab PO BID Qty: 20 0RF Referrals: No Primary/Family,Physician [Primary Care Provider] - In 1 week Problem List Clinical Impression: Allergic reaction Patient/Caregiver Discharge Instructions Additional Instructions: Discharge instructions Follow-up with your PCP within 1 week Avoid taking Zoloft moving forward, speak with your primary care doctor in regards to alternative SSRIs or SNRIs. Return to ED if your symptoms worsen or return Print Language: Sudanese Stand Alone Forms: [employer] Info., Patient Portal Info Letter MDM Narrative MDM hospital course (for use when minimal MDM required): 0135: Ordered labs, EKG, x-ray, also ordered Pepcid, Solu-Medrol, Tylenol, Zofran. 0253: EKG and X-ray reviewed, pt continues to improve. Labs reviewed, lactic acidosis with level of 2.6. Finished up fluid bolus. Pt is medically cleared for discharge. EKG Interpretation EKG #1: EKG Interpretation: Sinus rhythm, heart rate 83, QT 378, no QRS widening, no ST changes, Medication Administration(s) Medication Administration History Discontinued Medications Acetaminophen (Acetaminophen 325 Mg Tablet) 650 mg PO X1 ONE Stop: 02/08/25 01:30 Last Admin: 02/08/25 01:38 Dose: 650 mg Documented By: SABIHA Albuterol/Ipratropium (Albuterol/Ipratropium (Duoneb) Rt Jerilyn 3 Ml Nebu) 3 ml INH X1 ONE Stop: 02/08/25 01:40 Last Admin: 02/08/25 02:26 Dose: 3 ml Documented By: CHANEL Benzocaine (Benzocaine 20% (Hurricaine) Purling 1 Dose) 0 dose TOP X1 ONE Stop: 02/08/25 01:29 Last Admin: 02/08/25 01:43 Dose: 1 dose Documented By: SABIHA Famotidine (Famotidine Inj 10 Mg/Ml Vial 2 Ml) 20 mg IVP X1 ONE Stop: 02/08/25 01:29 Last Admin: 02/08/25 01:36 Dose: 20 mg Documented By: SABIHA Sodium Chloride (Ns) 1,000 mls @ 999 mls/hr IV .Q1H1M ONE Stop: 02/08/25 02:38 Last Admin: 02/08/25 01:45 Dose: 999 mls/hr Documented By: SABIHA Ketorolac Tromethamine (Ketorolac Inj 30 Mg/Ml Vial) 30 mg IVP X1 ONE Stop: 02/08/25 01:40 Last Admin: 02/08/25 01:47 Dose: 30 mg Documented By: SABIHA Methylprednisolone Sodium Succinate (Methylprednisolone Sod Succ 62.5 Mg/Ml 2ml Vial) 125 mg IVP X1 ONE Stop: 02/08/25 01:29 Last Admin: 02/08/25 01:35 Dose: 125 mg Documented By: SABIHA Ondansetron HCl (Ondansetron Inj 2 Mg/Ml Inj 2 Ml) 4 mg IVP X1 ONE; Protocol Stop: 02/08/25 01:30 Last Admin: 02/08/25 01:36 Dose: 4 mg Documented By: SABIHA
--- NOTE | 2025-02-08 01:29 | EKG_ITS ---
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
[2025-02-08] MEDS: MethylPREDNISolone SOD SUCC 62.5 MG/ML 2ML VIAL 125 MG IVP (01:35)
[2025-02-08] MEDS: FAMOTIDINE INJ 10 MG/ML VIAL 2 ML 20 MG IVP (01:36)
[2025-02-08] MEDS: ONDANSETRON INJ 2 MG/ML INJ 2 ML 4 MG IVP (01:36)
--- NOTE | 2025-02-08 01:36 | XR_ITS ---
EXAMINATION: AP chest single view TECHNIQUE: AP portable upright chest single view Date and time: February 08, 2025, 0155 hours INDICATIONS: Shortness of breath today. FINDINGS: Normal heart size Lungs are clear. The osseous structures are intact. IMPRESSION: No active disease
[2025-02-08] MEDS: ACETAMINOPHEN 325 MG TABLET 650 MG PO (01:38)
[2025-02-08 01:39] LABS: Lactate (Lactic Acid) 2.6 mMol/L (0.4-2.0)
[2025-02-08 01:40] LABS: Basophils # (Auto) 0.1 Thou/mm3 (0.0-0.2); Basophils % (Auto) 0 % (0-2.5); Eosinophils # (Auto) 0.1 Thou/mm3 (0.0-0.5); Eosinophils % (Auto) 1 % (0-10); Hematocrit 40.8 % (41.0-53.0); Hemoglobin 14.2 g/dL (13.5-16.0); Immature Granulocytes Auto 0.06 Thou/mm3 (0.00-0.00); Lymphocytes # (Auto) 2.2 Thou/mm3 (1.0-4.8); Lymphocytes % (Auto) 15 % (10-50); Mean Corpuscular HGB Conc 34.8 g/dl (31.0-37.0); Mean Corpuscular Hemoglobin 28.5 pg (25.0-35.0); Mean Corpuscular Volume 82 fL (80-100); Monocytes # (Auto) 0.7 Thou/mm3 (0.0-0.8); Monocytes % (Auto) 5 % (0-12); Neutrophils # (Auto) 11.8 Thou/mm3 (1.8-7.7); Neutrophils % (Auto) 80 % (37-80); Nucleated Red Blood Cell # 0.00 Thou/mm3 (0.00-0.00); Nucleated Red Blood Cell % 0 /100 WBC (0); Platelet Count 296 Thou/mm3 (140-440); RDW Standard Deviation 38.8 fL (35.1-43.9); Red Blood Count 4.99 Miln/mm3 (4.50-5.90); White Blood Count 14.8 Thou/mm3 (3.8-10.6)
[2025-02-08] MEDS: BENZOCAINE 20% (Hurricaine) SPRAY 1 DOSE TOP (01:43)
[2025-02-08] MEDS: SODIUM CHLORIDE 0.9% 1000 ML 1,000 ML 999 ML IV (01:45)
[2025-02-08] MEDS: KETOROLAC INJ 30 MG/ML VIAL IVP (01:47)
[2025-02-08 02:20] LABS: Alanine Aminotransferase 40 U/L (10-49); Albumin, Serum 4.7 gm/dL (3.5-5.0); Albumin/Globulin Ratio 2.0 (1.2-2.2); Alkaline Phosphatase 64 U/L (46-116); Anion Gap 12 (7-16); Aspartate Amino Transferase 31 U/L (0-34); BUN/Creatinine Ratio 13 Ratio (12-20); Bilirubin,Total 0.2 mg/dL (0.3-1.2); Blood Urea Nitrogen 14 mg/dL (9-23); Calcium 9.7 mg/dL (8.3-10.6); Calcium (Corrected) 9.7 mg/dL (8.5-10.1); Carbon Dioxide 27.2 mMol/L (20.0-31.0); Chloride 104 mMol/L (98-107); Creatinine (Component) 1.1 mg/dL (0.6-1.3); Estimated Creatinine Clearance 89.8 mL/min (>60); Globulin 2.3 gm/dL (2.3-3.5); Glucose 103 mg/dL (74-106); Lipase 31 U/L (12-53); Magnesium 1.6 mg/dL (1.6-2.6); Osmolality,Calculated 285 (275-295); Potassium 3.8 mMol/L (3.4-5.1); Sodium 143 mMol/L (136-145); Total Protein 7.0 gm/dL (5.7-8.2); Troponin I < 0.002 ng/mL (0.0-0.045); eGFR > 60 See Note
[2025-02-08 02:26] VITALS: PULSE 69; RESP 16; O2SAT 100
[2025-02-08] MEDS: ALBUTEROL/IPRATROPIUM (Duoneb) RT SOL 3 ML NEBU INH (02:26)
[2025-02-08 03:16] VITALS: BP 127/69; PULSE 79; RESP 19; TEMP 36.7; O2SAT 98
[2025-02-08 04:37] LABS: Reflex Lactate? Y
== END 2025-02-08 03:17 | disposition home or self-care (01) ==
DX: R13.10 Dysphagia, unspecified (principal); R06.02 Shortness of breath; R11.0 Nausea; R51.9 Headache, unspecified; T43.225A Adverse effect of selective serotonin reuptake inhibitors, initial encounter
CPT/HCPCS: 36415; 71045; 80053; 80307; 81001; 83605; 83690; 83735; 84484; 85025; 93005; 94640; 96361; 96374; 96375; 99284; A9270; J1885; J2405; J2919; J3490; J7030